=== PATIENT | female | born 1955 | race Caucasian/White ===

== ENCOUNTER → 2016-05-14 | Outpatient (CLI) | payer BC ==
[~2016-05-14] MED LIST: CHOL1TAB42 PO; LEVO75TA PO; SIMV10TA5 PO
--- NOTE | 2016-05-17 12:40 | MAMMOGRAPHY REPORT ---
BILATERAL DIGITAL SCREENING MAMMOGRAM TOMOSYNTHESIS WITH CAD: 05/14/2016 CLINICAL HISTORY: Routine screening. Patient has no complaints. TECHNIQUE: Breast tomosynthesis in addition to standard 2D mammography was performed. Current study was also evaluated with a Computer Aided Detection (CAD) system. COMPARISON: Comparison is made to exams dated: 05/07/2015 mammogram, 05/06/2014 mammogram, 05/04/2013 ma mmogram, 05/09/2013 mammogram, 05/03/2012 mammogram, and 04/28/2011 mammogram - [facility]. BREAST COMPOSITION: The tissue of both breasts is heterogeneously dense, which may obscure small ma sses. FINDINGS: No suspicious masses, calcifications, or areas of architectural distortion are noted in e ither breast. There has been no significant interval change compared to prior exams. IMPRESSION: ACR BI-RADS CATEGORY 1: NEGATIVE There is no mammographic evidence of malignancy. A 1 year screening mammogram is recommended. The p atient will receive written notification of the results. Approximately 10% of breast cancers are not detected with mammography. A negative mammographic repor t should not delay biopsy if a clinically suggestive mass is present. Bernda Yanez M.D. ah/:05/14/2016 16:44:17 Physical Therapy Professor: Vicki OLIVERA(Keagan)(M), [facility] letter sent: Normal 1/2 BI-RADS Code: ACR BI-RADS Category 1: Negative
== END | disposition home or self-care (01) ==
LOC: C.MAMM 14:39
PROVIDERS: ATTEND Family Medicine
DX: Z12.31 Encounter for screening mammogram for malignant neoplasm of breast (principal)

== ENCOUNTER → 2017-05-16 | Outpatient (CLI) | payer OTHER ==
--- NOTE | 2017-05-17 12:56 | MAMMOGRAPHY REPORT ---
BILATERAL DIGITAL SCREENING MAMMOGRAM TOMOSYNTHESIS WITH CAD: 05/16/2017 CLINICAL HISTORY: Routine screening. Patient has no complaints. TECHNIQUE: Breast tomosynthesis in addition to standard 2D mammography was performed. Current study was also evaluated with a Computer Aided Detection (CAD) system. COMPARISON: Comparison is made to exams dated: 05/14/2016 mammogram, 05/07/2015 mammogram, 05/06/2014 mateo mogram, 05/04/2013 mammogram, 05/03/2012 mammogram, and 04/28/2011 mammogram - [facility] ter. BREAST COMPOSITION: The tissue of both breasts is heterogeneously dense, which may obscure small mas ses. FINDINGS: There is decreasing nodularity in the breasts, most likely represent fluctuating cysts. Th ere are stable faint groupings of punctate macro calcifications bilaterally. No new suspicious mass, architectural distortion or cluster of microcalcifications is seen. IMPRESSION: ACR BI-RADS CATEGORY 1: NEGATIVE There is no mammographic evidence of malignancy. A 1 year screening mammogram is recommended. The pa tient will receive written notification of the results. Approximately 10% of breast cancers are not detected with mammography. A negative mammographic report should not delay biopsy if a clinically suggestive mass is present. Belle Hollins M.D. ay/:05/16/2017 15:15:34 Sueding Machine Operator: Vicki ARANA)(Mathew), [facility] letter sent: Normal 1/2 BI-RADS Code: ACR BI-RADS Category 1: Negative
== END | disposition home or self-care (01) ==
LOC: C.MAMM 11:06
PROVIDERS: ATTEND Family Medicine
DX: Z12.31 Encounter for screening mammogram for malignant neoplasm of breast (principal)

== ENCOUNTER 2019-05-15 06:32 | Observation (INO) ==
--- NOTE | 2019-04-13 16:14 | PAT Medication Instructions ---
Medication Instructions Date of Service April 13, 2019 Home Medications amlodipine 2.5 mg tablet 2.5 mg PO QAM aspirin [Aspirin Low Dose] 81 mg PO QPM cholecalciferol (vitamin D3) [Vitamin D3] 5,000 unit PO QAM levothyroxine 50 mcg PO QAM metoprolol succinate 25 mg PO QAM multivitamin 1 tab PO QAM simvastatin 20 mg PO PM DO NOT take the morning of surgery cholecalciferol (vitamin D3) [Vitamin D3] 5,000 unit PO QAM multivitamin 1 tab PO QAM Take morning of surgery With a small sip of water, OTHERWISE NOTHING TO EAT OR DRINK AFTER MIDNIGHT: amlodipine 2.5 mg tablet 2.5 mg PO QAM levothyroxine 50 mcg PO QAM metoprolol succinate 25 mg PO QAM Take evening before surgery aspirin [Aspirin Low Dose] 81 mg PO QPM simvastatin 20 mg PO PM Other Notes If you have any questions please call us at [phone] or [phone] or [phone] or [phone]
--- NOTE | 2019-04-16 08:25 | Anesthesiology Consultation ---
Date of Service April 16, 2019 Assessment & Plan (1) Encounter for pre-operative examination: Chart Review Chart Review: Acceptable Risk for Surgery (pending pre op testing) and Patient seen in Pre Admission Testing Teaching & Discussion Instructed NPO after midnight before surgery, except medications with 15 cc of water. Medication instructions provided according to the PAT guidelines. History Surgery Operation Date: 05/15/19 10:40 Proposed Procedures p Left Total Hip Arthroplasty - Edward Biggs MD Height/Weight Height: 5 ft 2.5 in Weight: 92 kg Allergies Allergy/AdvReac Type Severity Reaction Status Date / Time No Known Allergies Allergy Verified 04/09/19 08:40 Medications Home Medications Medication Instructions Recorded Confirmed Last Taken amlodipine 2.5 mg tablet 2.5 mg PO QAM 02/05/19 04/09/19 Unknown aspirin [Aspirin Low Dose] 81 mg PO QPM 04/09/19 04/09/19 Unknown cholecalciferol (vitamin D3) 5,000 unit PO QAM 04/09/19 04/09/19 Unknown [Vitamin D3] levothyroxine 50 mcg PO QAM 04/09/19 04/09/19 Unknown metoprolol succinate 25 mg PO QAM 04/09/19 04/09/19 Unknown multivitamin 1 tab PO QAM 04/09/19 04/09/19 Unknown simvastatin 20 mg PO PM 04/09/19 04/09/19 Unknown Past Medical History Medical History Bone spur left hip Diverticula of colon Hyperlipidemia Hypertension Obesity Exercise / Class Metabolic Activity II 4-5 Yardwork/Stairs/Walk up hill (Denies CP or SOB with 1 FOS) Past Surgical History Surgical History (Updated 04/09/19 @ 08:49 by Emiliana [place] RN) History of cholecystectomy Hx of colonoscopy Hx of tubal ligation Hx of wisdom tooth extraction Nausea and vomiting after administration of anesthetic agent Past Anesthesia History No Hx of Anesthesia Complications and No Family Hx of Anesthesia Complications History of PONV No Hx of Motion Sickness and History of PONV Social History Smoking Status: Never smoker Do You Dip or Chew Tobacco: No Hx Alcohol Use: Yes Alcohol type: beer alcohol intake frequency: a few times a week Hx Substance Use: No Review of Systems Pt denies any recent chest pain, shortness of breath, palpitations, cough, fever or URI. Physical Exam Vital Signs BP: 143/84 P: 66bpm SPO2: 96% RA T: 98.0 F R: 12 ENMT Mouth: + dental restorations (many crowns); no chipped teeth and no loose teeth Thyromental Distance: > or= 3.5 Finger Breadths (3.5) Mallampati Class: II Neck normal visual inspection; neck extension not limited Respiratory normal respiratory effort Auscultation: lungs clear to auscultation bilaterally Cardiovascular Rate/Rhythm: regular rate and regular rhythm Heart Sounds: no murmur
--- NOTE | 2019-04-16 08:54 | XRay Report ---
XR chest Pre-admission PA/Lat CLINICAL HISTORY: 63 years-old Female presenting with preoperative assessment, asymptomatic. TECHNIQUE: PA and lateral views of the chest were obtained. COMPARISON: None. FINDINGS: Borderline enlargement of the cardiac silhouette. Lungs and pleural spaces clear. Osseous structures normal. Upper abdomen normal. IMPRESSION: 1. Borderline cardiomegaly. No other convincing evidence of acute cardiopulmonary disease. ACT 112: Negative or not required by law. Electronically signed by: Graeme Powell M.D. 04/16/2019 8:53 AM
[2019-04-16 10:06] LABS: Basophils # (auto) 0.02 K/uL (0-0.2); Basophils % (auto) 0.3 %; Eosinophils # (auto) 0.11 K/uL (0-0.5); Eosinophils % (auto) 1.8 %; Hematocrit (blood only) 38.7 % (37-47); Hemoglobin 13.1 g/dL (12.0-16.0); Immature Granulocytes # (auto) 0.01 K/uL (0.00-0.02); Immature Granulocytes % (auto) 0.2 %; Lymphocytes # (auto) 1.62 K/uL (1.2-3.4); Lymphocytes % (auto) 26.1 %; Mean Corpuscular Hemoglobin 30.9 pg (25-34); Mean Corpuscular Hgb Conc 33.9 g/dL (32-36); Mean Corpuscular Volume 91.3 fL (80-100); Mean Platelet Volume 9.2 fL (7.4-10.4); Monocytes # (auto) 0.44 K/uL (0.11-0.59); Monocytes % (auto) 7.1 %; Neutrophils # (auto) 4.01 K/uL (1.4-6.5); Neutrophils % (auto) 64.5 %; Platelet Count 302 K/uL (130-400); RDW Coefficient of Variation 13.9 % (11.5-14.5); RDW Standard Deviation 45.5 fL (36.4-46.3); Red Blood Count 4.24 M/uL (4.2-5.4); White Blood Count 6.21 K/uL (4.8-10.8)
--- NOTE | 2019-04-16 10:10 | Electrocardiogram Report ---
Test Reason : Blood Pressure : / mmHG Vent. Rate : 064 BPM Atrial Rate : 064 BPM P-R Int : 156 ms QRS Dur : 090 ms QT Int : 440 ms P-R-T Axes : 044 041 073 degrees QTc Int : 453 ms Normal sinus rhythm Low voltage QRS Borderline ECG When compared with ECG of 17-JUL-2013 08:26, No significant change was found Confirmed by Joe Hale ([id number]) on 04/16/2019 10:10:46 AM Referred By: Edward Biggs Confirmed By:Joe Hale
[2019-04-16 10:14] LABS: BUN Creatinine Ratio 14.1 (10-20); Calcium 9.1 mg/dl (8.5-10.1); Creatinine Clr Calc Pharmacy 69.1 ml/min; Est GFR (African American) 79.4; Est GFR (Non-African American) 68.5; Potassium 4.1 mmol/L (3.5-5.1)
[2019-04-16 10:19] LABS: Partial Thromboplastin Ratio 0.9; Partial Thromboplastin Time 23.6 Seconds (21.0-31.0)
--- NOTE | 2019-05-12 00:34 | History and Physical Report ---
DATE OF ADMISSION: 05/15/2019 CHIEF COMPLAINT: Left hip pain. HISTORY OF PRESENT ILLNESS: The patient is a 63-year-old female who presents with a 2- to 3-year history of increasing left hip pain and discomfort. She has tried multiple medicines without much relief. She describes groin pain, thigh pain, radiates down to her knee. She has pain and difficulty going up and down steps. She has nighttime pain. The more she walks, the more it hurts. She would like to have it fixed. PAST MEDICAL HISTORY: 1. Hypertension. 2. Elevated cholesterol. 3. Obesity with a BMI of 37. 4. Low back pain/sciatica. PAST SURGICAL HISTORY: Include, 1. Cholecystectomy. 2. Tubal ligation. ALLERGIES: None. CURRENT MEDICATIONS: 1. Vitamin D. 2. Synthroid. 3. Zocor. 4. Amlodipine. 5. Metoprolol. SOCIAL HISTORY: A 63-year-old female. She lives in [place]. Does not smoke. FAMILY HISTORY: Noncontributory. REVIEW OF SYSTEMS: Negative for diabetes, neurologic problems, vascular problems, or bleeding disorders. Denies any chest pain or shortness of breath. No history of DVT or PE. No known bleeding problems. PHYSICAL EXAMINATION: GENERAL: Shows a pleasant, middle-aged female. Looks to be in reasonably good health. HEENT: Benign. NECK: Supple, no lymphadenopathy. LUNGS: Clear to auscultation. HEART: Has a regular rate and rhythm. ABDOMEN: Soft, nontender, nondistended. EXTREMITIES: Grossly neurovascularly intact except as follows: Examination of the left hip and leg reveal patient walks with slight bit of a limp. Leg lengths clinically appear pretty equal. She has pain with any type of hip motion. She can internally rotate to about neutral. Negative straight leg raise. She is neurologically intact. X-RAYS: X-rays of the left hip were reviewed. Shows advanced hip DJD with near complete loss of the joint space. She has got fairly concentric disease and it has progressed significantly over the past year. ASSESSMENT: A 63-year-old female with advanced left hip degenerative joint disease. It has markedly progressed over the past year. She has failed conservative treatment and would like to have her left hip replaced. PLAN: We will take her to the operating room and do a left total hip replacement. The risks and benefits of this procedure were explained to the patient including but not limited to DVT, PE, , infection, neurological injury, vascular injury, bleeding problem, pain, limited range of motion, stiffness, failure to relieve her symptoms, need for further surgery in the future, fracture, leg length inequality, nerve palsy, and incomplete relief of symptoms. The patient understands and desires to proceed. Informed consent was obtained. We did talk to her about taking her metoprolol the morning of surgery. She is hoping to be discharged to home using [facility].
[~2019-05-15 06:32] MED LIST changes: +ACETAMINOPHEN 500 MG TAB PO SCH; +BUPIVACAINE 0.5 % 5 MG/1 ML PF 10ML VIAL ONE; +CEFAZOLIN 2000MG 2,000 MG/15 ML SYR IV SCH; -CHOL1TAB42 PO; +FAMOTIDINE 20 MG TAB PO SCH; +GABAPENTIN 600 MG DOSE PO SCH; -LEVO75TA PO; +LR 15ML/HR IV SCH; +LR 500ML BOLUS, THEN 15ML/HR IV SCH; +METOCLOPRAMIDE HCL 10 MG TABLET PO SCH; +SCOPOLAMINE 1.5 MG TDSY TD SCH; -SIMV10TA5 PO; +TRANEXAMIC ACID 1,000 MG **IV Pre-op IV SCH
--- NOTE | 2019-05-15 06:52 | History & Physical Bridge Note ---
Date of Service May 15, 2019 History & Physical Bridge Note I have examined the patient, reviewed the History & Physical and in the interval since the performance of the History & Physical I have noted the following changes of clinical significance: no changes noted
[2019-05-15] MEDS ORDERED: MIDAZOLAM HCL 1 MG/ML 2ML VIAL ONE (07:08)
[2019-05-15] MEDS ORDERED: fentaNYL citrate 100 MCG/2 ML VIAL ONE (07:08)
[2019-05-15] MEDS ORDERED: MoRPHine SULFATE PF 1 MG/ML 10 ML AMP/VIAL ONE (07:08)
[2019-05-15] MEDS ORDERED: BACITRACIN INJ 50,000 UNIT VIAL ONE (08:42)
[2019-05-15] MEDS ORDERED: BUPIVACAINE/EPINEPHRINE 0.5% MPF 1:200,000 10 ML VIAL ONE (08:43)
[2019-05-15] MEDS ORDERED: ONDANSETRON INJ 2 MG/ML 2 ML VIAL IV PRN ×2 (08:54→11:31)
[2019-05-15] MEDS ORDERED: ATROPINE SULFATE 0.1 MG/ML 10ML SYR IV PRN (08:54)
[2019-05-15] MEDS ORDERED: fentaNYL citrate 100 MCG/2 ML VIAL IV PRN (08:54)
[2019-05-15] MEDS ORDERED: ePHEDrine sulfate 50 MG/ML AMP IV PRN ×2 (08:54→11:31)
[2019-05-15] MEDS ORDERED: PROPOFOL IV EMULSION 10 MG/ML 20 ML VIAL IV ONE ×2 (09:18→09:24)
--- NOTE | 2019-05-15 10:38 | Post Operative Brief Note ---
PG Immediate Post Op with CF Date of Surgery May 15, 2019 Pre & Post Diagnosis Operation Date: 05/15/19 08:50 Pre-Op Diagnosis: Left Hip Advanced Degenerative Joint Disease Post-Op Diagnosis: Left Hip Advanced Degenerative Joint Disease I identified the patient and participated in the time-out.: Yes Procedure Operation Date: 05/15/19 08:50 Actual Procedures p Left Total Hip Arthroplasty--Uncemented(Left) - Edward Biggs MD Surgeon Edward Biggs MD Hedis Coordinator Zunilda, PAC Estimated Blood Loss 200 Findings Consistent with Post-Op Diagnosis Fluids 1300 cc Specimens Specimen Description: A: Left Femoral Head Drains Santana Catheter (A 16 Cook Islander santana catheter was inserted by Bharti Blackwood RN, without difficulty, clear yellow urine obtained, output to be monitored by Anesthesia.) Anesthesia Type Spinal MAC Complications none Disposition Accompanied Patient To Recovery: Yes Disposition: Recovery Room
--- NOTE | 2019-05-15 11:19 | XRay Report ---
XR hip 1V LT w pelvis CLINICAL HISTORY: Postoperative evaluation. COMPARISON: Pelvis radiograph February 05, 2019. FINDINGS: Alignment of the total left hip arthroplasty is anatomic. There is no periprosthetic fract ure or unexpected radiopaque foreign body. There are acetabular screws. There are skin argelia. IMPRESSION: Expected findings following total left hip arthroplasty. ACT 112: Negative or not required by law. Electronically signed by: Pola Eli M.D. 05/15/2019 11:18 AM
[2019-05-15] MEDS ORDERED: NALOXONE HCL 0.08 MG in SYRINGE 1.8 ML IV PRN (11:31)
[2019-05-15] MEDS ORDERED: DiphenhydrAMINE HCL 50 MG/ML VIAL IV PRN (11:31)
[2019-05-15] MEDS ORDERED: NALBUPHINE HCL INJ 10 MG/ML AMP IV PRN (11:31)
[2019-05-15] MEDS ORDERED: NALOXONE HCL 0.4 MG/1 ML VIAL/CARP IV PRN (11:31)
[2019-05-15] MEDS ORDERED: MoRPHine SULFATE 2 MG/ML CARP IV PRN (11:31)
[2019-05-15] MEDS ORDERED: LACTATED RINGER'S 500 ML IV PRN (11:31)
[2019-05-15] MEDS ORDERED: MoRPHine SULFATE PF 1 MG/ML 10 ML AMP/VIAL INT SPINAL ONE (11:31)
[2019-05-15] MEDS ORDERED: HYDROmorphone INJ 0.5 MG/0.5 ML SYR IV PRN (11:31)
[2019-05-15] MEDS ORDERED: NALOXONE HCL 1 MG in SODIUM CHLORIDE 0.9% 1000ML 1,000 ML IV PRN (11:31)
--- NOTE | 2019-05-15 11:32 | Anesthesiology Progress Note ---
Date of Service May 15, 2019 Anesthesia Post Procedure Vital Signs Vital Signs: Temp Pulse Pulse Resp BP Pulse Ox 05/15/19 11:20 71 14 118/75 93 05/15/19 11:10 36.4 C L 75 17 128/72 93 05/15/19 11:00 73 15 118/70 94 05/15/19 10:50 75 17 120/56 L 96 05/15/19 10:40 36.2 C L 84 16 111/57 L 98 05/15/19 07:07 37.3 C 76 18 166/93 H 96 Pain Intensity Left Hip: Pain Intensity: 2 Transfer of Care Handoff Completed per policy Notes Mental Status: alert / awake / arousable and participated in evaluation Patient Amnestic to Procedure: Yes Nausea / Vomiting: adequately controlled Pain: adequately controlled Airway Patency, RR, SpO2: stable & adequate BP & HR: stable & adequate Hydration State: stable & adequate Neuraxial Anesthesia: was administered and sensory block is resolving Anesthetic Complications: no major complications apparent and Pt Satisfied with anesthetic care
[2019-05-15] MEDS ORDERED: ALUMINUM/MAGNESIUM SUSP 30 ML UDC PO PRN (11:41)
[2019-05-15] MEDS ORDERED: bisacodyL 10 MG SUPP PR PRN (11:41)
[2019-05-15] MEDS ORDERED: METOCLOPRAMIDE HCL INJ 5 MG/ML 2 ML VIAL IV PRN (11:41)
[2019-05-15] MEDS ORDERED: MAGNESIUM HYDROXIDE SUSP 30 ML UDC PO PRN (11:41)
[2019-05-15] MEDS ORDERED: NO NARCOTICS OR SEDATIVES SCH (11:45)
[2019-05-15] MEDS ORDERED: SODIUM CHLORIDE 0.9% 1000ML 1,000 ML IV SCH (11:45)
[2019-05-15] MEDS: KETOROLAC 30 MG/ML VIAL IV SCH ×3 (13:27→23:47)
[2019-05-15] MEDS: CHECK SCOPOLAMINE PATCH PLACEMENT SCH ×2 (15:35→23:47)
[2019-05-15] MEDS: ACETAMINOPHEN 500 MG TAB PO SCH ×2 (15:35→23:48)
[2019-05-15] MEDS: CEFAZOLIN 2000MG 2,000 MG/15 ML SYR IV SCH (16:58)
[2019-05-15] MEDS: SODIUM CHLORIDE 0.9% 1000ML 1,000 ML IV SCH ×2 (16:59→23:47)
[2019-05-15] MEDS ORDERED: TRANEXAMIC ACID / 0.7% NACL 1,000 MG/100 ML BAG IV ONE (17:00)
[2019-05-15] MEDS: FERROUS GLUCONATE 324 MG TAB PO SCH (17:40)
[2019-05-15] MEDS: ASCORBIC ACID 500 MG TAB PO SCH (17:40)
--- NOTE | 2019-05-15 19:05 | Operative Report ---
Post Operative Report Pre & Post Diagnosis Operation Date: 05/15/19 08:50 Pre-Op Diagnosis: Left Hip Advanced Degenerative Joint Disease Post-Op Diagnosis: Left Hip Advanced Degenerative Joint Disease I identified the patient and participated in the time-out.: Yes Procedure Operation Date: 05/15/19 08:50 Actual Procedures p Left Total Hip Arthroplasty--Uncemented(Left) - Edward Biggs MD Surgeon Edward Biggs MD Alliance Director Zunilda, PAC Estimated Blood Loss 200 Findings Consistent with Post-Op Diagnosis Operative findings revealed advanced left hip DJD. She had a large hip joint effusion. She had grade 4 changes the femoral head and acetabulum. She did not have a lot of osteophyte formation. Moderate synovitis. Fluids 1300 cc Specimens Left femoral head sent for pathology. Drains None. Anesthesia Type Spinal MAC Complications none Disposition Accompanied Patient To Recovery: Yes Disposition: Recovery Room Indications Patient is a 63-year-old female is had about a 2 to 3-year history of gradually progressive increasing left hip pain unresponsive conservative treatment. X- rays show progressive left hip arthritis over the past year. Patient failed conservative treatment elected proceed with surgical treatment. Description of Procedure Operative implants consist of: 1. Biomet size 50 mm G7 acetabular shell. 2. 6.5 cancellus acetabular screws 1 of 35 mm length and 1 to 20 mm length. 3. [place] hole eliminator. 4. Highly cross-linked polyethylene liner with a 50 mm outer diameter and 32 mm inner diameter 5. Fallentimber Corail size 10 KLA femoral stem. 6. +5/32 mm ceramic articular ball. Patient was taken to the operating room identified and placed on the operating table supine position protectors were properly padded. IV antibiotics were provided by anesthesia team. A spinal anesthetic had been implemented holding area. Merrill catheter was placed in sterile fashion. Patient was then placed in the right lateral decubitus position. Axillary roll was placed. The Stulberg hip positioner was used for positioning. The left hip and leg were then prepped and draped in usual sterile fashion. A posterior lateral posterior left hip was then performed to a curvilinear incision centered over the greater trochanter. Sharp dissection Through subcutaneous tissue down below the IT band gluteal fascia with the IT band gluteal fascia then incised longitudinally in line with the skin incision. The underlying greater trochanter bursa was excised. The piriformis and external rotators were then tagged and taken off the posterior aspect of the hip joint capsule. Great care was taken throughout the procedure to protect the sciatic nerve at all times. Posterior capsulotomy was then performed leaving a large flap for later repair. Hip was internally rotated and dislocated. Femoral neck osteotomy cut was made with Final Cut 10 mm above the lesser trochanter. Femoral head was removed and sent for pathology. The femur was retracted anteriorly. Attention drawn the acetabulum. The acetabular labrum was excised. The pulmonary fat was excised. Sequential reaming the acetabular was then performed begin with a size 43 and progressing up to 49. A 50 mm Biomet G7 acetabular shell was then placed in about 40 degrees lateral opening and 20 degrees of anteversion. Was fixed with two 6.5 cancellus acetabular screws. Some small anterior osteophytes were removed. A trial liner was placed. Attention drawn the femur. The proximal femur was entered with a cookie-cutter followed by canal finder. Then broached beginning with size 8 and progressing up to a 10. We got excellent fitted to 10. The calcar reamer was used smooth and off the calcar. I then trialed the hip and the +5 articular ball seem to re-create soft tissue tension appropriately and equalize leg lengths. The hip was fully stable in full extension and external rotation flexion to 9 degrees into rotation over [address] I elect to place these implants. All trial implants were removed. An apex hole eliminator was placed. A highly cross-linked polyethylene liner was placed. A 10 KLA femoral stem was then impacted in position. A +5/32 mm ceramic articular ball was placed and hip was located. Was once again found to be stable. Attention drawn toward closing. The wound was irrigated copious pulsatile lavage solution. I did inject locally with 60 cc of half percent Marcaine with epinephrine. Patient did receive 1 g of tranexamic acid preoperatively. The posterior capsule and external rotators were then repaired through drill holes in the posterior trochanter with #2 Tycron suture. The IT band gluteal fascia then closed in 1 PDS suture in a running fashion the subcutaneous tissue then closed 2 layers the deep layer with #2 Vicryl suture and subcutaneous tissues with 2-0 Dexon suture in a buried interrupted fashion the skin was closed skin argelia. Leg was then cleaned dried and sterile dressing composed of Xeroform, 4 x 4's, sterile ABD pad and foam tape was applied. Patient then transferred to the recovery room in stable condition. Patient tolerated procedure well no complications. I attest to the content of the Intraoperative Record and any orders documented therein. Any exceptions are noted below.
[2019-05-15] MEDS: DOCUSATE SODIUM 100 MG CAP PO SCH (20:18)
[2019-05-15] MEDS: SENNA 8.6 MG TAB PO SCH (20:18)
[2019-05-15] MEDS: SIMVASTATIN 20 MG TAB PO SCH (20:18)
[2019-05-15] MEDS: ASPIRIN 81 MG ECTAB PO SCH (20:18)
[2019-05-16] MEDS: CEFAZOLIN 2000MG 2,000 MG/15 ML SYR IV SCH (00:59)
[2019-05-16] MEDS ORDERED: NALOXONE HCL 0.4 MG/1 ML VIAL/CARP IV PRN (05:31)
[2019-05-16] MEDS ORDERED: HYDROmorphone INJ 0.5 MG/0.5 ML SYR IV PRN (05:31)
[2019-05-16] MEDS ORDERED: TRAMADOL HCL 50 MG TABLET PO PRN (05:31)
[2019-05-16] MEDS ORDERED: ONDANSETRON INJ 2 MG/ML 2 ML VIAL IV PRN (05:31)
[2019-05-16] MEDS ORDERED: DC INTRASPINAL MORPHINE ONE (05:31)
[2019-05-16] MEDS: KETOROLAC 30 MG/ML VIAL IV SCH ×4 (05:40→23:22)
[2019-05-16] MEDS: LEVOTHYROXINE SODIUM 50 MCG TABLET PO SCH (05:40)
[2019-05-16 05:49] LABS: Basophils # (auto) 0.01 K/uL (0-0.2); Basophils % (auto) 0.1 %; Eosinophils # (auto) 0.03 K/uL (0-0.5); Eosinophils % (auto) 0.4 %; Hematocrit (blood only) 29.3 % (37-47); Hemoglobin 9.7 g/dL (12.0-16.0); Immature Granulocytes # (auto) 0.01 K/uL (0.00-0.02); Immature Granulocytes % (auto) 0.1 %; Lymphocytes # (auto) 1.64 K/uL (1.2-3.4); Lymphocytes % (auto) 22.3 %; Mean Corpuscular Hemoglobin 30.6 pg (25-34); Mean Corpuscular Hgb Conc 33.1 g/dL (32-36); Mean Corpuscular Volume 92.4 fL (80-100); Monocytes # (auto) 0.57 K/uL (0.11-0.59); Monocytes % (auto) 7.7 %; Neutrophils # (auto) 5.11 K/uL (1.4-6.5); Neutrophils % (auto) 69.4 %; Platelet Count 228 K/uL (130-400); RDW Coefficient of Variation 13.6 % (11.5-14.5); Red Blood Count 3.17 M/uL (4.2-5.4); White Blood Count 7.37 K/uL (4.8-10.8)
[2019-05-16 06:20] LABS: BUN Creatinine Ratio 16.4 (10-20); Creatinine Clr Calc Pharmacy 67.3 ml/min; Est GFR (African American) 77.3; Est GFR (Non-African American) 66.7; Potassium 3.8 mmol/L (3.5-5.1)
[2019-05-16] MEDS: FERROUS GLUCONATE 324 MG TAB PO SCH ×2 (08:47→17:37)
[2019-05-16] MEDS: ACETAMINOPHEN 500 MG TAB PO SCH ×3 (08:47→23:23)
[2019-05-16] MEDS: ASPIRIN 81 MG ECTAB PO SCH ×2 (08:48→20:27)
[2019-05-16] MEDS: ASCORBIC ACID 500 MG TAB PO SCH ×2 (08:48→17:37)
[2019-05-16] MEDS: METOPROLOL SUCC 25MG EXT REL TAB PO SCH (08:48)
[2019-05-16] MEDS: MULTIVITAMIN TAB PO SCH (08:48)
[2019-05-16] MEDS: DOCUSATE SODIUM 100 MG CAP PO SCH ×2 (08:48→20:27)
[2019-05-16] MEDS: AMLODIPINE BESYLATE 5 MG TAB PO SCH (08:49)
[2019-05-16] MEDS: CHOLECALCIFEROL 1,000 UNITS 25 MCG TAB PO SCH (08:50)
[2019-05-16] MEDS ORDERED: NON-FORMULARY MEDICATION (Multivitamin 1 TAB) PO SCH (09:00)
--- NOTE | 2019-05-16 11:23 | Progress Notes ---
DATE: 05/16/2019 SUBJECTIVE: 63-year-old female postop day 1 from a left hip replacement. She is doing pretty well. Pain is controlled. Had some nausea last night, but doing better this morning. No chest pain or shortness of breath. Not feeling dizzy or lightheaded. OBJECTIVE: VITAL SIGNS: Temperature 36.8. Vital signs stable. GENERAL: Shows a pleasant, middle-aged female. She is sitting up in bed, looks pretty comfortable. LUNGS: Clear to auscultation. HEART: Regular rate and rhythm. ABDOMEN: Soft, nontender, nondistended. EXTREMITIES: Grossly neurovascularly intact except as follows: Examination of the left leg reveals the leg lengths to be equal. Dressing is clean, dry and intact. Thigh is soft and supple. She is neurologically intact. She can dorsiflex and plantarflex her foot appropriately. Hip is located. LABORATORY DATA: Hemoglobin 9.7. Hematocrit 29.3. Electrolytes are stable. ASSESSMENT: 63-year-old female postop day 1 from left hip replacement, doing well. Pain is controlled. Hip is located. She is neurologically intact. She is mildly anemic, but asymptomatic. PLAN: 1. DVT prophylaxis including thigh-high TEDs, SCDs, and aspirin twice a day. 2. PT/OT. Weight bear as tolerated. Left total knee protocol. 3. Pain control, doing pretty well with current pain regimen. 4. Anemia. Will continue iron supplementation. 5. Disposition: She is planning to be discharged to home with some home health once adequately recovered and medically stable.
[2019-05-16] MEDS: SIMVASTATIN 20 MG TAB PO SCH (20:26)
[2019-05-16] MEDS: SENNA 8.6 MG TAB PO SCH (20:26)
[2019-05-17] MEDS: LEVOTHYROXINE SODIUM 50 MCG TABLET PO SCH (05:30)
[2019-05-17] MEDS: KETOROLAC 30 MG/ML VIAL IV SCH (05:30)
[2019-05-17 06:08] VITALS: BP 126/79; PULSE 79; TEMP 98.6; O2SAT 94
[2019-05-17] MEDS: ACETAMINOPHEN 500 MG TAB PO SCH (07:23)
[2019-05-17] MEDS: MULTIVITAMIN TAB PO SCH (07:23)
[2019-05-17] MEDS: METOPROLOL SUCC 25MG EXT REL TAB PO SCH (07:23)
[2019-05-17] MEDS: AMLODIPINE BESYLATE 5 MG TAB PO SCH (07:24)
[2019-05-17] MEDS: ASCORBIC ACID 500 MG TAB PO SCH (07:24)
[2019-05-17] MEDS: CHOLECALCIFEROL 1,000 UNITS 25 MCG TAB PO SCH (07:24)
[2019-05-17] MEDS: DOCUSATE SODIUM 100 MG CAP PO SCH (07:24)
[2019-05-17] MEDS: ASPIRIN 81 MG ECTAB PO SCH (07:24)
[2019-05-17] MEDS: FERROUS GLUCONATE 324 MG TAB PO SCH (07:24)
--- NOTE | 2019-05-17 08:09 | Progress Notes ---
DATE: 05/17/2019 SUBJECTIVE: A 63-year-old female postop day 2 from left hip replacement. She is doing pretty well. Pain is controlled. Therapy has gone pretty well. No chest pain or shortness of breath. OBJECTIVE: VITAL SIGNS: Temperature 37.0. Vital signs stable. GENERAL: Shows a pleasant, middle-aged female. She is lying in bed, looks pretty comfortable. EXTREMITIES: Examination of the left hip and leg reveals the leg to be well aligned. Dressing is clean, dry and intact. Leg lengths are equal. She can dorsiflex and plantarflex her foot appropriately. ASSESSMENT: A 63-year-old female postop day 2 from a left hip replacement, doing pretty well. Pain is controlled. Hip is located. She is neurologically intact. PLAN: 1. DVT prophylaxis including thigh-high TEDs, SCDs, and aspirin twice a day. 2. PT/OT. Weight bear as tolerated. Left total hip protocol. 3. Pain control, doing pretty well with current pain regimen. 4. Disposition: Plan to discharge her to home with some home health later today.
--- NOTE | 2019-05-18 14:28 | Discharge Summary (DS) ---
ADMITTING PHYSICIAN AND SURGEON: Dr. Edward Biggs. ADMITTING DIAGNOSIS: Left hip degenerative joint disease. SURGERY PERFORMED: Left total hip arthroplasty. SECONDARY DIAGNOSES: Hypertension, elevated cholesterol, obesity, low back pain, sciatica. CONSULTS: None obtained. HISTORY AND PHYSICAL EXAMINATION: Well documented in the patient's chart. HOSPITAL COURSE: The patient was admitted on 05/15/2019 underwent total hip arthroplasty, tolerated the procedure well. There were no complications. She was transferred to the PACU postoperatively and later to the orthopedic floor for further care. She was given Ancef for antibiotic prophylaxis, TRUNG stockings, SCDs and aspirin for DVT prophylaxis. Hemoglobin, hematocrit and vital signs were monitored during her hospital stay and remained stable. She had some mild anemia and received an iron supplement. She did not require any blood transfusions. There were no complications. By postoperative day 2 she was tolerating a regular diet, pain was controlled with oral pain medicine. She was participating in physical therapy. On postoperative day 2 she was discharged home, set up with home health services, given printed discharge instructions as well as new prescriptions for extra strength Tylenol, aspirin, iron supplement and tramadol. Continue her home medicines. Continue physical therapy, weightbearing as tolerated, TRUNG stockings, total hip precautions. Follow up approximately 2 weeks postop.
== END 2019-05-17 10:38 | disposition home health service (06) ==
LOC: ASU 06:32 → 3E 06:32